=== PATIENT | female | born 1975 | race Caucasian/White ===

== ENCOUNTER 2017-10-25 19:59 | Emergency (ER) | payer MEDICAID ==
[2017-10-25] MEDS: KETOROLAC 30 MG INJ IM (20:44)
== END 2017-10-25 21:49 | disposition home or self-care (01) ==
LOC: FTE 19:59
DX: J03.90 Acute tonsillitis, unspecified (principal)
CPT/HCPCS: 81025; 96372; 99284-25

== ENCOUNTER 2017-12-29 03:09 | Emergency (ER) | payer MEDICAID ==
[2017-12-29] MEDS: traMADol 50 MG TAB PO (04:33)
== END 2017-12-29 05:00 | disposition home or self-care (01) ==
LOC: FTE 03:09
DX: G43.909 Migraine, unspecified, not intractable, without status migrainosus (principal)
CPT/HCPCS: 99283; Z7502